=== PATIENT | male | born 1980 | race Hispanic/Latino ===

== ENCOUNTER 2017-11-19 14:41 | Emergency (ER) | payer OTHER ==
[2017-11-19] MEDS ORDERED: PHENYTOIN SODIUM 100 MG ERCAP PO ONE (14:59)
== END 2017-11-19 15:18 | disposition home or self-care (01) ==
LOC: EDH 14:41
DX: Z76.0 Encounter for issue of repeat prescription (principal); G40.909 Epilepsy, unspecified, not intractable, without status epilepticus